=== PATIENT | female | born 1970 | race Caucasian/White ===

== ENCOUNTER 2023-07-29 01:41 | Emergency (ER) | payer OTHER, SELFPAY ==
[2023-07-29 01:43] VITALS: BP 154/86
--- NOTE | 2023-07-29 02:39 | ED.GENMED ---
History of Present Illness
<JOHN Howell - Last Filed: 07/29/23 04:28>
General
Chief Complaint: Musculo-Skeletal Complaint
Time Seen by Provider: 07/29/23 01:47
Travel History
Have you had any contact with someone who has COVID-19?: No
Do you have any symptoms of coronavirus? Fever > 100 degrees, chills, cough, shortness of breath, sore throat, loss of taste or smell, muscle aches, or headache?: No
History of Present Illness
History of Present Illness:
This is a 53 yo female PMH back pain, HTN, and hyperparathyroidism presenting for L ankle pain. She states she was walking with heels and 'rolled her ankle,' describing an inversion injury. She states the pain is at the anterolateral portion of her
L foot and is getting worse. She has been icing the area and has not taken any pain medications yet.
Past History
<JOHN Howell - Last Filed: 07/29/23 04:28>
Past History
ED Past Medical History: Hypercholesterolemia, Other (Migraine headaches, hyperparathyroidism), Other (thalassemia ( anemia )) and Other (back pain)
ED Past Surgical History: Orthopedic (Lumbar laminectomy)
Patient has exhibited threatening behavior?: No
Social History
Tobacco: Smoker
Alcohol: Daily
Drug: None
Personal:
Living: alone
Employment: Employed
Family History
Family History: Hypertension
Review of Systems
<JOHN Howell - Last Filed: 07/29/23 04:28>
Review of Systems
Allergies reviewed?: Yes
Constitutional: Reports no symptoms
Respiratory: Reports no symptoms
Cardiac: Reports no symptoms
Musculoskeletal: Reports joint pain and joint swelling
Phy Exam
<JOHN Howell - Last Filed: 07/29/23 04:28>
General Physical Exam
General Presentation: well appearing
General age: appears stated age
General Mental: alert and other (appears mildly intoxicated, alert and oriented x 3 )
Musculoskeletal Exam
Musculoskeletal Exam: other (ecchymosis and swelling of anterolateral L foot. Tenderness to palpation of area.)
Course
<JOHN Howell - Last Filed: 07/29/23 04:28>
Orders/Labs/Results
Orders:
Orders
07/29/23 01:47
Ankle, left 3 view CR [CR Ankle - Left Min 3 Views ] Urgent
Comment:
Reason For Exam: injury and pain.
07/29/23 02:48
Air Splint Left-Treatment ONCE
Crutches-Treatment ONCE
07/29/23 03:20
Ibuprofen [Motrin] 600 mg PO NOW STA
Vital Signs
Initial and Last Documented VS:
Initial Vital Signs
Temp Pulse Resp BP Pulse Ox
97.9 F 68 18 154/86 100
07/29/23 01:43 07/29/23 01:43 07/29/23 01:43 07/29/23 01:43 07/29/23 01:43
Last Documented Vital Signs
Temp Pulse Resp BP Pulse Ox
97.9 F 66 20 114/75 100
07/29/23 01:43 07/29/23 03:03 07/29/23 03:03 07/29/23 03:03 07/29/23 03:03
<Akash Mar DO - Last Filed: 07/29/23 02:54>
Orders/Labs/Results
Orders:
Orders
07/29/23 01:47
Ankle, left 3 view CR [CR Ankle - Left Min 3 Views ] Urgent
Comment:
Reason For Exam: injury and pain.
07/29/23 02:48
Air Splint Left-Treatment ONCE
Crutches-Treatment ONCE
07/29/23 03:20
Ibuprofen [Motrin] 600 mg PO NOW STA
Vital Signs
Initial and Last Documented VS:
Initial Vital Signs
Temp Pulse Resp BP Pulse Ox
97.9 F 68 18 154/86 100
07/29/23 01:43 07/29/23 01:43 07/29/23 01:43 07/29/23 01:43 07/29/23 01:43
Last Documented Vital Signs
Temp Pulse Resp BP Pulse Ox
97.9 F 66 20 114/75 100
07/29/23 01:43 07/29/23 03:03 07/29/23 03:03 07/29/23 03:03 07/29/23 03:03
<JOHN Howell - Last Filed: 07/29/23 04:28>
MDM/Problems Addressed
Differential Diagnosis Includes:
Ankle Sprain
- Pain, swelling, ecchymosis of anterolateral L foot
- Fracture ruled out on XRAY
MDM/Problems Addressed:
-Motrin for pain
-Patient instructed to rest and ice L leg
-Patient instructed to follow up with orthopedics if pain significantly worsens or does not resolve
-Ankle brace applied, patient given crutches, instructed to continue use of ankle brace until symptoms have improved
<JOHN Howell - Last Filed: 07/29/23 04:28>
*Radiology
Radiology exam reviewed: preliminary read by ED provider
*Critical Care Note
Total Time (30-74mins, 75-104mins- exclusive of procedures): Not Applicable
<JOHN Howell - Last Filed: 07/29/23 04:28>
Update Note
Update Note:
Motrin 600 mg given for pain
Ankle brace applied, patient instru
ED Attending Note
<JOHN Howell - Last Filed: 07/29/23 04:28>
-
Portions of this chart may have been created with voice recognition software.� Occasional wrong word or��sound alike� substitutions may have occurred due to the inherent limitations of voice recognition software.
<Akash Macias DO Ziad - Last Filed: 07/29/23 02:54>
ED Attending Note
Patient seen and examined by attending physician: Yes
I performed the substantive portion of visit, reviewed & personally made and approve the management plan that is documented in note by myself or ANA.: Yes
I performed a history and physical exam of patient and discussed management with resident, I reviewed resident's note and agree with documented findings and plan of care.: Yes
ED Attending Note:
I evaluated the patient at bedside. The patient has ecchymosis and tenderness to the dorsal lateral aspect of the left foot. Imaging personally reviewed. There is some calcification on the lateral aspect of the distal talus however I do not think
this is a true acute fracture. Will place in splint and give crutches. She is to follow-up with orthopedics.
Discharge Plan
Departure
Patient Disposition: Home (Routine Discharge)
Date of Disposition: 07/29/23
Time of Disposition: 02:56
Patient with high blood pressure during this ER visit?: Yes
Discharge Problem:
Ankle sprain
Instructions: Ankle Sprain (DC), How to Use Crutches
Prescriptions:
No Action
ondansetron HCl 4 MG tablet
4 mg PO Q8HPRN PRN (Reason: nausea)
sumatriptan succinate 50 MG tablet
50 mg PO PRN PRN (Reason: migraines)
loperamide 2 MG capsule
6 mg PO HS
loperamide 2 MG capsule
8 mg PO DAILY
cetirizine 10 MG tablet
10 mg PO DAILY
clonazepam 0.5 MG tablet
0.5 mg PO Q4H
Patient Comments:
q4h with pain meds
cholestyramine (with sugar) 4 GM powder in packet
4 gm PO DAILY
guaifenesin [Mucus Relief ER] 600 MG tablet extended release 12hr
600 mg PO Q12
multivitamin with folic acid [Tab-A-Winnie] 1 TABLET tablet
1 tab PO DAILY
rizatriptan 10 mg Tablet
10 mg PO DAILY
metoprolol tartrate
100 mg PO DAILY
ibuprofen 600 MG tablet
600 mg PO BID
Referrals:
Jocelin Mcdonald I., DO [Active] - Follow up in 2-3 days
Activity Restrictions/Additional Instructions:
I recommend 3-4 [id number] ibuprofen (Motrin) every 8 hours with food for a few days. Return here if worse., If symptoms persist, I recommend you follow-up with orthopedics such as Dr. Mcdonald.
Interventions
Interventions:
*Risk Screen - Suicide Last Done: 07/29/23 02:08
*General Assessment Last Done: 07/29/23 02:08
*Neglect/Abuse Screening Last Done: 07/29/23 01:52
ED- Fall Risk Assessment Last Done: 07/29/23 02:24
*ED COVID-19 Vaccine History Last Done: 07/29/23 01:52
ED-Musculoskeletal Assessment Last Done: 07/29/23 02:08
Discharge Date and Time
Print Language: MALAY
[2023-07-29 03:03] VITALS: BP 114/75
[2023-07-29] MEDS: MOTRIN 600 MG PO (03:28)
[2023-07-29 06:58] VITALS: BP 118/75
== END 2023-07-29 07:47 | disposition home or self-care (01) ==
LOC: EMR 01:41
PROVIDERS: EMERGENCY PHYSICIAN Emergency Medicine; FAMILY PHYSICIAN Internal Medicine
DX: S93.402A Sprain of unspecified ligament of left ankle, initial encounter (principal); X50.1XXA Overexertion from prolonged static or awkward postures, initial encounter; F17.200 Nicotine dependence, unspecified, uncomplicated; I10 Essential (primary) hypertension; E21.3 Hyperparathyroidism, unspecified
CPT/HCPCS: 99283; 73610

== ENCOUNTER → 2023-11-30 16:52 | Outpatient (REF) | payer OTHER, SELFPAY | LOC: HWRAD 16:52 | PROVIDERS: ATTENDING PHYSICIAN Nurse Practitioner Family; FAMILY PHYSICIAN Internal Medicine | DX: M79.671 Pain in right foot (principal) | CPT/HCPCS: 73620 ==